=== PATIENT | male | born 1965 | race Native Hawaiian/Other Pacific Islander ===

== ENCOUNTER 2022-03-07 13:46 | Observation (INO) | payer BC ==
[~2022-03-07] VITALS: Ht 175.3 cm; Wt 79.4 kg
[2022-03-07 08:26] LABS: BASOPHILS ABSOLUTE AUTO 0.04 K/mm3 (0.00-0.23); BASOPHILS PERCENT AUTO 1 % (0-2); EOSINOPHILS ABSOLUTE AUTO 0.03 K/mm3 (0.00-0.68); EOSINOPHILS PERCENT AUTO 0 % (0-6); Hematocrit 42.3 % (37.0-53.0); Hemoglobin 15.5 g/dL (13.5-17.5); IMMATURE GRAN ABSOLUTE AUTO 0.02 K/mm3 (0.00-0.10); IMMATURE GRAN PERCENT AUTO 0 % (0-1); LYMPHOCYTES ABSOLUTE AUTO 0.83 K/mm3 (0.84-5.20); LYMPHOCYTES PERCENT AUTO 12 % (21-46); MONOCYTES ABSOLUTE AUTO 0.49 K/mm3 (0.16-1.47); MONOCYTES PERCENT AUTO 7 % (4-13); Mean Corpuscular HGB 33.5 pg (26.0-34.0); Mean Corpuscular HGB Conc 36.6 g/dL (31.5-36.5); Mean Corpuscular Volume 92 fL (80-100); Mean Platelet Volume 10.4 fL (9.1-12.4); NEUTROPHILS ABSOLUTE AUTO 5.69 K/mm3 (1.96-9.15); NEUTROPHILS PERCENT AUTO 80 % (41-73); Platelet Count 176 K/mm3 (150-400); RDW Coefficient Variation 14.3 % (11.7-14.2); RDW Standard Deviation 47.8 fL (35.1-46.3); Red Blood Cell Count 4.62 M/mm3 (4.30-5.90)
[2022-03-07 08:55] LABS: Albumin, Blood 2.6 g/dL (3.4-5.0); Albumin/Globulin Ratio 0.7 (0.8-1.8); Bilirubin, Total 3.5 mg/dL (0.1-1.0); Bun/Creatinine Ratio 7.6 (12.0-20.0); Calcium, Blood 8.4 mg/dL (8.5-10.1); Creatinine, Blood 1.18 mg/dL (0.60-1.20); Globulin, Blood 3.5 g/dL (2.2-4.0); Total Protein, Blood 6.1 g/dL (6.4-8.2)
[2022-03-07 09:05] LABS: Influenza A, PCR NEGATIVE (NEGATIVE); Influenza B, PCR NEGATIVE (NEGATIVE); Resp Syncytial Virus, PCR NEGATIVE (NEGATIVE); SARS-Cov-2 (COVID-19) PCR, MMC NEGATIVE (NEGATIVE)
[2022-03-07 09:14] LABS: Potassium, Blood 4.2 mmol/L (3.5-5.5)
[2022-03-07 14:42] LABS: CHOL/HDL RATIO 17.2; Cholesterol 292 mg/dL (50-200); HDL Cholesterol 17 mg/dL (>39); Triglycerides 512 mg/dL (30-160); Very Low Density Lipoprot Chol Unable to Calculate mg/dL (6-32)
[2022-03-07 14:43] LABS: Low Density Lipoprotein Chol Unable to Calculate mg/dL (0-110)
[2022-03-07 14:44] LABS: LDL/HDL RATIO Unable to Calculate
[2022-03-07 16:20] LABS: International Normalized Ratio 1.19; Prothrombin Time Results 12.4 Sec (9.7-11.5)
--- NOTE | 2022-03-07 18:24 | NUR ---
PATIENT ADMITTED FROM THE ER THIS EVENING WITH ELEVATED TROPONINS. HE IS ALERT AND ORIENTATED, INDEPENDENT IN HIS ROOM. TELE IN PLACE, SR. TACKS UP WITH ANY ACTIVITY. FEW PVC NOTED DURING ACTIVITY WELL. IV IS RUNNING NS AT 125. REGULAR DIET ORDERED AND DINNER 100%. PATIENT HAS SMALL HISTORY- ONE SEIZURE 7 YEARS AGO D/T ETOH WD. ALCOHOL WD SORE IS ZERO AT THIS TIME, BUT VITALS (BP) APPEAR TO BE AFFECTED. LISINOPRIL WAS GIVEN AFTER A CALL TO THE PROVIDER 155/102. RECHEKED 20 MINUTES LATER AND PRESSURE IS ELEVATED 176/95. CHARGE NURSE NOTIFIED. STATED RECHECK AFTER LISINOPRIL HAS BEEN IN FOR ONE HOUR. MOST RECENT TROPONIN 340. DENIES CHEST PAIN, DENIES SOB. NO N/V AT THIS TIME. SKIN HEALTHY OTHER THAN ATTEMPTED IV SITE, WHICH IS BRUISED.
--- NOTE | 2022-03-07 22:05 | NUR ---
EVENT: PT ARRIVED ON UNIT AROUND 2044. CHEMICAL OPERATIONS SPECIALIST CALLED MD FOR TELE ORDER. ORDER PLACED. RADAR MECHANIC CALLED CHEMICAL OPERATIONS SPECIALIST AND STATED "HE'S HAVING ST ELEVATION IN ALL THE CHEST LEADS, ST DEPRESSION IN LEADS 2,3 AND AVS." CHARGE NURSE THEN OBTAINED EKG. CHEMICAL OPERATIONS SPECIALIST CALLED TO TAKE A LOOK AT EKG. CAME BEDSIDE AND COMPARED EKG FROM CURRENT AND IN THE ER. STATED THERE WERE NO CHANGES. ADDED A TROP CHECK BUT OTHERWISE WAS OK WITH PT'S CURRENT STATUS.
[2022-03-08 05:27] LABS: Hemoglobin 15.7 g/dL (13.5-17.5); Mean Corpuscular HGB 33.3 pg (26.0-34.0); Mean Corpuscular HGB Conc 34.9 g/dL (31.5-36.5); Mean Corpuscular Volume 95 fL (80-100); Mean Platelet Volume 11.3 fL (9.1-12.4); Platelet Count 178 K/mm3 (150-400); RDW Coefficient Variation 14.8 % (11.7-14.2); Red Blood Cell Count 4.72 M/mm3 (4.30-5.90); White Blood Cell Count 9.13 K/mm3 (4.00-11.30)
--- NOTE | 2022-03-08 05:49 | NUR ---
SHIFT SUMMARY: Pt A/Ox4 and call light appropriate. Pt slept well in between cares. He scored a 1 on all three CIWA checks overnight. Only scoring for slight tremors. He denied any nausea, SOB, dizziness, and pain this shift. he did recieve PRN Hydralazine once for a high BP. Telemetry called one time this shift as pt HR was sustaining in the 150's. When sign writer letterer or painter went to check pt was up wondering in room, once he settled back in bed his HR went back to the 70's.
[2022-03-08 06:11] LABS: Albumin, Blood 2.7 g/dL (3.4-5.0); Albumin/Globulin Ratio 0.8 (0.8-1.8); Bilirubin, Total 5.1 mg/dL (0.1-1.0); Bun/Creatinine Ratio 6.7 (12.0-20.0); Calcium, Blood 8.6 mg/dL (8.5-10.1); Creatinine, Blood 1.34 mg/dL (0.60-1.20); Globulin, Blood 3.4 g/dL (2.2-4.0); Magnesium, Blood 2.5 mg/dL (1.6-2.4); Potassium, Blood 3.7 mmol/L (3.5-5.5); Total Protein, Blood 6.1 g/dL (6.4-8.2)
[2022-03-08] MEDS ORDERED: AMLO5 PO (11:15)
--- NOTE | 2022-03-08 13:35 | NUR ---
DISCHARGE PT A&OX4, SPOUSE @ BEDSIDE DURING DC. PT PROVIDED W/ WRITTEN AND VERBAL DIRECTION. MED FAXED INTO [facility]. SPOUSE VERBALIZED WORRY ABOUT ELEVATED HR-DR. HALL NOTIFIED AND ADJUSTED TO METOPROLOL. IV DCED. TELE DCED.
== END 2022-03-08 12:18 | disposition home or self-care (01) ==
LOC: MEDS 16:03
PROVIDERS: Nurse Practitioner Acute Care; Student in an Organized Health Care Education/Training Program; ADMIT Internal Medicine
DX: R11.2 Nausea with vomiting, unspecified (principal); E87.1 Hypo-osmolality and hyponatremia; E78.1 Pure hyperglyceridemia; I10 Essential (primary) hypertension; F10.20 Alcohol dependence, uncomplicated; R16.0 Hepatomegaly, not elsewhere classified; K76.0 Fatty (change of) liver, not elsewhere classified; Z20.822 Contact with and (suspected) exposure to COVID-19
CPT/HCPCS: 0241U; 36415; 71045; 76705; 80053; 80061; 83036; 83690; 83735; 83880; 84484; 85025; 85027; 85610; 85651; 86141; 90686; 93005; 93010; 93306; 96360; 96372; 96374; 99285-25; A9270; G0008; G0378; J0360; J1650; J7030